=== PATIENT | female | born 1960 | race Caucasian/White ===

== ENCOUNTER 2016-08-18 03:26 | Emergency (ER) | payer BC, OTHER ==
[~2016-08-18] VITALS: Ht 165.1 cm; Wt 58.5 kg
--- NOTE | 2016-08-18 03:35 | NUR ---
TO BED 6 A 56 YO FEMALE BIBHUSBAND WITH C/O NAUSEA, VOMITING AND DIARRHEA SINCE TUESDAY. PER PATIENT SHE "HAS BEEN VOMITING ALOT AT HOME AND PROBABLY HAD 10 LOOSE WATERY STOOLS SINCE LAST NIGHT." PATIENT IS AAOX4, NO S/S OF ACUTE DISTRESS. VSS. AFEBRILE. GOWNED. INITIATED COMFORT MEASURES. AWAITING FOR ER MD FLORES.
--- NOTE | 2016-08-18 03:43 | NUR ---
DR VICKERS AT BEDSIDE TO EVAL.
[2016-08-18] MEDS ORDERED: IV SET PRIMARY 1 EA INFUS.SET MC ONE ×2 (03:49→04:47)
[2016-08-18] MEDS ORDERED: ONDANSETRON HCL/PF 4 MG/2 ML VIAL ONE ×2 (03:49→04:47)
[2016-08-18] MEDS ORDERED: FAMOTIDINE/PF INJ 20 MG/2 ML VIAL IV ONE ×2 (03:50→04:00)
[2016-08-18] MEDS ORDERED: IV NS 0.9% 1,000 ML ONE ×2 (03:50→04:47)
[2016-08-18] MEDS ORDERED: IV NS 0.9% 1,000 ML BAG IV ONE ×2 (04:00→05:00)
[2016-08-18] MEDS ORDERED: ONDANSETRON HCL/PF 4 MG/2 ML VIAL IVP ONE (04:00)
[2016-08-18 04:04] LABS: BASOPHILS % (AUTO) 0.3 % (0.0-2.0); EOSINOPHILS % (AUTO) 0.3 % (0.0-6.0); HEMATOCRIT 38 % (33-45); HEMOGLOBIN 12.1 g/dL (11.5-14.8); LYMPHOCYTES # (AUTO) 0.5 /CMM (0.8-4.8); LYMPHOCYTES % (AUTO) 6.8 % (20.0-44.0); MEAN CORPUSCULAR HEMOGLOBIN 27 PG (26.0-33.0); MEAN CORPUSCULAR HGB CONC 32 g/dl (31.0-36.0); MEAN CORPUSCULAR VOLUME 85 fL (82-100); MONOCYTES # (AUTO) 0.5 /CMM (0.1-1.30); MONOCYTES % (AUTO) 7.4 % (2.0-12.0); NEUTROPHILS # (AUTO) 5.8 /CMM (1.8-8.9); NEUTROPHILS % (AUTO) 85.2 % (43.0-81.0); PLATELET COUNT (AUTO) 240 /CMM (150-450); RDW COEFFICIENT OF VARIATION 14.5 (11.5-15.0); WHITE BLOOD COUNT (AUTO) 6.8 K/uL (4.3-11.0)
[2016-08-18 04:19] LABS: CALCIUM, SERUM 8.3 mg/dL (8.5-10.1); CREATININE 0.9 mg/dL (0.6-1.3); POTASSIUM 3.5 mmol/L (3.5-5.1)
[2016-08-18 04:25] LABS: ALBUMIN 3.4 g/dL (3.4-5.0); BILIRUBIN,DIRECT 0.1 mg/dL (0.0-0.2); BILIRUBIN,TOTAL 0.5 mg/dL (0.2-1.0); TOTAL PROTEIN, SERUM 6.8 g/dL (6.4-8.2)
[2016-08-18 05:00] LABS: APPEARANCE,URINE SL CLOUDY (CLEAR); BILIRUBIN,URINE NEGATIVE (NEGATIVE); BLOOD, URINE NEGATIVE Ery/uL (NEGATIVE); COLOR,URINE YELLOW (YELLOW); KETONES,URINE 1+ (NEGATIVE); LEUKOCYTE ESTERASE ,URINE 1+ (NEGATIVE); NITRITE, URINE NEGATIVE (NEGATIVE); PH,URINE 6.5 (5.0-8.0); PROTEIN,URINE NEGATIVE (NEGATIVE); UGLUCOSE NEGATIVE (NEGATIVE); UROBILINOGEN,URINE 0.2 EU/dL (0.2)
[2016-08-18] MEDS ORDERED: ONDANSETRON HCL/PF - ER 4 MG/2 ML VIAL IV ONE (05:00)
[2016-08-18 05:09] LABS: ADD URINE CULTURE YES; BACTERIA,URINE None seen /HPF (None Seen); MUCUS,URINE Moderate /LPF (None Seen); SQUAMOUS EPITHELIAL CELL,UR Few /HPF (None Seen); WBC,URINE 0-2 /HPF (0-3)
--- NOTE | 2016-08-18 05:37 | NUR ---
IV removed. Catheter intact and site benign. Pressure and 4x4 applied to site. No bleeding noted. Patient discharged to home in stable condition. Written and verbal after care instructions given. Patient verbalizes understanding of instruction. Patient is ambulatory with steady gait, accompanied by to home.
[2016-08-18 05:38] VITALS: BP 120/79
== END 2016-08-18 05:38 | disposition home or self-care (01) ==
LOC: ER 03:28
DX: E86.0 Dehydration (principal); R11.10 Vomiting, unspecified; R19.7 Diarrhea, unspecified; Z90.89 Acquired absence of other organs; Z98.890 Other specified postprocedural states
CPT/HCPCS: 36415; 80048; 80076; 81001; 83605; 83690; 85025; 96361; 96374; 96375; 96376; 99284; A4606; J2405 ×2; J3490; J7030 ×2; Z7610; 81000-TC; 87086-TC

== ENCOUNTER 2017-01-17 08:30 | Emergency (ER) | payer BC ==
[~2017-01-17] VITALS: Ht 165.1 cm; Wt 63.0 kg
[2017-01-17 08:35] VITALS: BP 158/79
[2017-01-17] MEDS ORDERED: IBUPROFEN 600 MG TABLET PO ONE ×2 (08:38→09:00)
== END 2017-01-17 09:13 | disposition home or self-care (01) ==
LOC: ER 08:31
DX: S13.4XXA Sprain of ligaments of cervical spine, initial encounter (principal); Z98.890 Other specified postprocedural states; Z90.89 Acquired absence of other organs; V49.40XA Driver injured in collision with unspecified motor vehicles in traffic accident, initial encounter; Y93.89 Activity, other specified; Y92.413 State road as the place of occurrence of the external cause; Y99.8 Other external cause status
CPT/HCPCS: 99283; A4606; Z7610

== ENCOUNTER 2017-02-06 08:36 | Emergency (ER) | payer BC ==
[~2017-02-06] VITALS: Ht 165.1 cm; Wt 61.2 kg
--- NOTE | 2017-02-06 08:36 | NUR ---
BIB RA D/T SYNCOPAL EPISODE IN BATHROOM AT HOME. PATIENT HIT HEAD UPON FALL. PER RA, PICKED UP PATIENT AND TOOK HER TO BED AND WAS STILL UNRESPONSIVE. INSTRUCTED TO PERFORM CHEST COMPRESSIONS PER 911. UPON ARRIVAL OF RA TO HOME, PATIENT FOUND TO HAVE PULSE AND BREATHING, A/OX 3. CURRENTLY BREATHING EVEN AND UNLABORED. NO SOB. NO TRAUMA NOTED. VITALS REMAIN STABLE. IV INTACT AND PATENT ON LAC, 20 G. SAFETY AND COMFORT MEASURES IN PLACE. AWAITING MD ORDERS.
--- NOTE | 2017-02-06 08:38 | NUR ---
Dr. javier at bedside for evaluation.
[2017-02-06 08:59] LABS: BASOPHILS % (AUTO) 0.3 % (0.0-2.0); EOSINOPHILS # (AUTO) 0.1 /CMM (0.0-0.7); EOSINOPHILS % (AUTO) 0.7 % (0.0-6.0); HEMATOCRIT 38 % (33-45); HEMOGLOBIN 12.4 g/dL (11.5-14.8); LYMPHOCYTES # (AUTO) 1.2 /CMM (0.8-4.8); LYMPHOCYTES % (AUTO) 13.4 % (20.0-44.0); MEAN CORPUSCULAR HEMOGLOBIN 28 PG (26.0-33.0); MEAN CORPUSCULAR HGB CONC 33 g/dl (31.0-36.0); MEAN CORPUSCULAR VOLUME 85 fL (82-100); MONOCYTES # (AUTO) 0.4 /CMM (0.1-1.30); MONOCYTES % (AUTO) 4.3 % (2.0-12.0); NEUTROPHILS # (AUTO) 7.2 /CMM (1.8-8.9); NEUTROPHILS % (AUTO) 81.3 % (43.0-81.0); PLATELET COUNT (AUTO) 238 /CMM (150-450); RDW COEFFICIENT OF VARIATION 14.3 (11.5-15.0); WHITE BLOOD COUNT (AUTO) 8.9 K/uL (4.3-11.0)
[2017-02-06] MEDS ORDERED: IV NS 0.9% 1,000 ML BAG IV ONE (09:00)
--- NOTE | 2017-02-06 09:00 | NUR ---
ELECTRICAL FITTER AT BEDSIDE.
--- NOTE | 2017-02-06 09:01 | NUR ---
XRAY at bedside
[2017-02-06 09:15] LABS: CALCIUM, SERUM 8.9 mg/dL (8.5-10.1); CARBON DIOXIDE 27 mmol/L (21-32); CHLORIDE 104 mmol/L (98-107); CREATININE 0.9 mg/dL (0.6-1.3); GLUCOSE 118 mg/dL (74-106); POTASSIUM 4.1 mmol/L (3.5-5.1); SODIUM SERUM 140 mmol/L (136-145); UREA NITROGEN, BLOOD 20 mg/dL (7-18)
[2017-02-06 09:19] LABS: TROPONIN I < 0.017 ng/mL (0.00-0.056)
[2017-02-06 09:20] LABS: PROTHROMBIN TIME 10.4 SECS (9.5-12.7)
[2017-02-06] MEDS ORDERED: KETOROLAC TROMETHAMINE INJ 30 MG/ML VIAL IV ONE (10:00)
[2017-02-06] MEDS ORDERED: KETOROLAC TROMETHAMINE INJ 30 MG/ML VIAL ONE (10:05)
--- NOTE | 2017-02-06 10:35 | NUR ---
URINE OBTAINED AND SENT TO LAB.
[2017-02-06 10:36] LABS: APPEARANCE,URINE Clear (CLEAR); BILIRUBIN,URINE Negative (NEGATIVE); BLOOD, URINE Trace-lysed Ery/uL (NEGATIVE); COLOR,URINE Yellow (YELLOW); KETONES,URINE Negative (NEGATIVE); LEUKOCYTE ESTERASE ,URINE Moderate (NEGATIVE); NITRITE, URINE Positive (NEGATIVE); PROTEIN,URINE Negative (NEGATIVE); UGLUCOSE Negative (NEGATIVE); UROBILINOGEN,URINE 0.2 EU/dL (0.2)
[2017-02-06 10:51] LABS: BACTERIA,URINE Many /HPF (None Seen); RBC,URINE 0-2 /HPF (0-2); SQUAMOUS EPITHELIAL CELL,UR Few /HPF (None Seen); WBC,URINE TOO NUMEROUS TO COUN /HPF (0-3)
[2017-02-06] MEDS ORDERED: CIPROFLOXACIN IV RTU 200 ML IV ONE (10:58)
[2017-02-06] MEDS ORDERED: CIPROFLOXACIN IV RTU 400 MG in PREMIX 1 EA IV ONE (11:00)
[2017-02-06 12:21] VITALS: BP 127/78
--- NOTE | 2017-02-06 12:22 | NUR ---
Patient discharged to home in stable condition. Written and verbal after care instructions given. Patient verbalizes understanding of instruction.IV removed. Catheter intact and site benign. Pressure and 4x4 applied to site. No bleeding noted. Prescription given.
== END 2017-02-06 12:23 | disposition home or self-care (01) ==
LOC: ER 08:39
DX: N39.0 Urinary tract infection, site not specified (principal); R55 Syncope and collapse; Z90.89 Acquired absence of other organs
CPT/HCPCS: 36415; 70450; 71010; 72125; 80048; 81001; 84484; 85025; 85730; 87077; 87086; 87186; 93005; 96361; 96365; 96375; 99285; A4216; A4606; J0744 ×2; J1885; J7030; Z7610; 81000-TC